=== PATIENT | female | born 1990 | race Two or more races ===

== ENCOUNTER 2017-05-09 19:03 | Emergency (ER) | payer OTHER ==
[~2017-05-09] VITALS: Ht 160 cm; Wt 74.8 kg
[~2017-05-09 19:03] MED LIST: LEVSIN/SL0.125 MG SL; ORPH100T PO; PEPCID40 MG PO; PROTONIX40 MG PO
== END 2017-05-09 21:36 | disposition home or self-care (01) ==
LOC: ER 19:03
DX: R10.84 Generalized abdominal pain (principal); M94.0 Chondrocostal junction syndrome [Tietze]; N39.0 Urinary tract infection, site not specified

== ENCOUNTER → 2018-10-29 | Emergency (ER) | payer OTHER ==
[~2018-10-29] VITALS: Ht 160 cm; Wt 74.8 kg
== END | disposition left against medical advice (07) ==
LOC: ER 14:39
DX: Z53.20 Procedure and treatment not carried out because of patient's decision for unspecified reasons (principal)

== ENCOUNTER 2018-12-16 19:48 | Emergency (ER) | payer OTHER ==
[~2018-12-16] VITALS: Ht 160 cm; Wt 77.1 kg
== END 2018-12-16 23:54 | disposition home or self-care (01) ==
LOC: ER 19:48
DX: K29.70 Gastritis, unspecified, without bleeding (principal)

== ENCOUNTER 2020-09-04 13:41 | Emergency (ER) | payer OTHER ==
[~2020-09-04] VITALS: Ht 160 cm; Wt 65.8 kg
[2020-09-04] MEDS ORDERED: NORFLEX100MG PO (17:52)
[2020-09-04] MEDS ORDERED: MEDROLPACK PO (17:52)
[2020-09-04] MEDS ORDERED: KETO10TA2 PO (17:52)
== END 2020-09-04 18:56 | disposition home or self-care (01) ==
LOC: ER 13:41
DX: M54.5 Low back pain (principal); M54.2 Cervicalgia

== ENCOUNTER 2022-03-05 16:46 | Emergency (ER) | payer OTHER ==
[~2022-03-05] VITALS: Ht 162.6 cm; Wt 61.2 kg
[~2022-03-05 16:46] MED LIST changes: +KETO10TA2 PO; +MEDROLPACK PO; +NORFLEX100MG PO
== END 2022-03-05 20:51 | disposition home or self-care (01) ==
LOC: ER 16:46
DX: M54.50 Low back pain, unspecified (principal); F32.A Depression, unspecified

== ENCOUNTER 2022-10-01 12:45 | Emergency (ER) | payer OTHER ==
[~2022-10-01] VITALS: Ht 160 cm; Wt 74.4 kg
== END 2022-10-01 15:11 | disposition home or self-care (01) ==
LOC: ER 12:45
DX: M45.4 Ankylosing spondylitis of thoracic region (principal)